=== PATIENT | female | born 1960 | race Caucasian/White ===

== ENCOUNTER → 2016-10-20 | Day surgery (SDC) | payer OTHER ==
[~2016-10-20] MED LIST: ATORVASTATIN CA40 MG PO; FUROSEMIDE40 MG PO; K-DUR20 ME1; LEVOTHYROXINE150 MCG PO; MULTI-VITAMIN1 EAC1 PO; PROBIOTIC1 EAC2 PO; ROXICODONE15 MG PO; VENLAFAXINE HC150 MG PO; VITAMIN D250000 UNIT PO
--- NOTE | ~2016-10-20 | EKG ---
PATIENT: LES CARR UNIT #: [id number] Ventricular Rate: 47 BPM Atrial Rate: 47 BPM P-R Interval: 222 ms QRS Duration: 80 ms Q-T Interval: 440 ms QTC Calculation(Bezet): 389 ms P [place]: 44 degrees Calculated R [place]: -11 degrees Calculated T [place]: 67 degrees Diagnosis Line: Marked sinus bradycardia with 1st degree A-V block Diagnosis Line: Abnormal ECG Diagnosis Line: No previous ECGs available Diagnosis Line: Confirmed by LYNETTE SALAS, LIZBETH ([id number]) on Diagnosis Line: 10/20/2016 4:27:42 PM INTERPRETING MD: DESTINEE
--- NOTE | ~2016-10-20 | OR ---
Unit #: [id number] #: [id number] Patient: BELKYS DANIEL [id number] [address] [address] [id number] MR#: [id number] NAME: BELKYS DANIEL ROOM: Date of Procedure: 10/20/2016 Admission Date: 10/20/2016 Surgeon: Anoop Carreno M.D. : 1960 Attending Physician: Anoop Carreno M.D. Primary Care Physician: Lin Miller A.P.R.N. OPERATIVE REPORT PREOPERATIVE DIAGNOSES 1. Lumbar degenerative disk disease. 2. Chronic pain syndrome. POSTOPERATIVE DIAGNOSES 1. Lumbar degenerative disk disease. 2. Chronic pain syndrome. PROCEDURES PERFORMED 1. Implantation of SynchroMed Medtronic 20 mL pump. 2. Implantation of Ascenda catheter. 3. Physician filling of pump. 4. Fluoroscopy. SURGICAL INDICATIONS AND RATIONALE Ms. Belkys Daniel is a pleasant 56-year-old female, who has been struggling with chronic low back pain with other joint involvement also. The patient has tried various conservative treatment options including career representative, physical therapy, home exercises, nonsteroidal anti-inflammatory medications. She has also had escalating doses of opioids, muscle relaxants, epidural injections, and radiofrequency ablations, none of which has helped her pain. The patient has undergone an epidural pain pump trial using Dilaudid and she has had about an 80% to 90% reduction in pain. The patient has had a psychological evaluation along with a cardiac clearance, both of which did not reveal any abnormalities. The patient also had a detailed discussion with me regarding the risks, benefits, and alternatives available including the consent degree and all her questions were answered to her satisfaction. I used a teach back method to make sure that the patient understood my explanations. The patient has also had an education process with [employer] customer support representative, Thelma Wang, who has also discussed the consent degree and all her questions were answered to her satisfaction. The patient is here to have an implantation of intrathecal pain pump. DESCRIPTION OF PROCEDURE After obtaining full informed consent and after discussion with the patient of possible complications including infection, bleeding, paralysis, spinal headaches, , and other perioperative complications were discussed with the patient and consent was obtained in front of nurse, Dana. The patient was then taken back to the operating room, where a time-out was done in accordance to the joint commission guidelines where Unit #: [id number] #: [id number] Patient: BELKYS DANIEL the patient's identity, procedure, and site of procedure were verified. The patient received antibiotic coverage 30 minutes before entering the operating room. The anesthesiologist then induced general anesthesia and positioned the patient in the prone position. The patient's back was prepped and draped in the usual fashion. Then under fluoroscopic view, I was able to identify the L2-3 interspace and after the skin target sites were anesthetized, I made an incision using a #10 blade. Then with the help of the Bovie, I was able to create a space in the underlying tissue to house the Tuohy needle and the catheter. I then placed a 17-gauge Tuohy needle into the intrathecal space at first pass with clear flow of CSF. I then navigated an Ascenda catheter through the Tuohy needle to reach the upper border of T7 under live fluoroscopic view. The Tuohy needle along with the stylet of the catheter were removed and the catheter was secured to the interspinous ligament using a special anchoring device. This device was further fortified using 3-0 Prolene sutures. This incision was then copiously irrigated with irrigant. Then after the skin target sites were anesthetized, I made an incision measuring 6 cm in length in the lower back on the left side. With the help of the Bovie, I was able to create a pocket to house the pump pocket. I then irrigated the pump pocket copiously and all bleeders were halted. I then placed a TyRx pouch in the pocket. I then used a tunneling device to tunnel the catheter into the lumbar incision and then I cut it to size. I then connected a separate piece of catheter using a special connector, which was then connected to the pump. The pump was filled by me previously using hydromorphone at 5 mg/mL. A total of 20 mL was placed. I then aspirated the side port of the pump using a 24-gauge Bowen needle and I was able to get clear flow of CSF. This means that the catheter along with the pump were intact. The pump was then secured to the underlying tissue using 3-0 Prolene sutures. I then inspected the two incisions and closed it using interrupted 3-0 Vicryl sutures in two layers. The skin was then approximated with marycruz. A Telfa and Tegaderm dressing were then placed and the patient was brought back to the recovery room for neurological monitoring. The patient was then discharged home neurologically intact with plans to return to my office in 7 days to have her marycruz removed. The patient's pump was started at 0.5 mg per day and the patient is able to access her patient hospice music therapy at 0.04 mg up to three activations a day. The total maximum activations the patient will be able to deliver is 0.6188 mg per day. The patient understands that she needs to come back to my office in 7 days to have her marycruz removed. I got a chance to discuss the course of the surgical procedure with the patient's . The [employer]onic SynchroMed pump serial #[id number] and the [employer] catheter serial #[id number]. Dictated by... Austin Avelar/heriberto TD: 10/21/2016 15:42 JOB #: [id number] Unit #: [id number] #: [id number] Patient: BELKYS DANIEL OPERATIVE REPORT Page 1 of 1 X Anoop Carreno MD PROCEDURE OPERATIVE NOTE
[2016-10-20 12:16] LABS: POTASSIUM 4.1 mmol/L (3.5-5.1)
== END | disposition home or self-care (01) ==
LOC: CSUR 10:36
PROVIDERS: Specialist
DX: G89.4 Chronic pain syndrome (principal); M51.36 Other intervertebral disc degeneration, lumbar region; E03.9 Hypothyroidism, unspecified; F41.9 Anxiety disorder, unspecified; F32.9 Major depressive disorder, single episode, unspecified; I73.9 Peripheral vascular disease, unspecified; M19.90 Unspecified osteoarthritis, unspecified site; I10 Essential (primary) hypertension; E78.5 Hyperlipidemia, unspecified; F17.210 Nicotine dependence, cigarettes, uncomplicated; Z79.899 Other long term (current) drug therapy; Z90.49 Acquired absence of other specified parts of digestive tract; Z90.5 Acquired absence of kidney; Z98.1 Arthrodesis status; Z98.890 Other specified postprocedural states
CPT/HCPCS: 76000; 80048; 82947; 93005; C1772; J0330; J0690; J1170; J2250; J2405; J3010